=== PATIENT | male | born 1985 | race Caucasian/White ===

== ENCOUNTER 2018-02-20 16:09 | Emergency (ER) | payer OTHER ==
[2018-02-20 16:35] VITALS: BP 140/81
[2018-02-20] MEDS ORDERED: Naproxen TAB* 250 MG PO ONE (16:42)
--- NOTE | 2018-02-20 17:01 | UC ---
Upper Extremity HPI - HPI Summary HPI Summary: 33-year-old male who speaks only guyanese presents with right wrist pain. 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 Complains of pain to the distal radius. Describes pain as sharp. Nonradiating. Worsens with movement. Associated with some mild swelling and bruising. He has taken some over-the- counter ibuprofen with some relief. Last dose was at 9 AM this morning. Denies any weakness, numbness, or tingling. - History of Current Complaint Chief Complaint: UCUpperExtremity Stated Complaint: WRIST INJURY Time Seen by Provider: 02/20/18 16:23 Hx Obtained From: Patient, Supervisor Files Onset/Duration: Sudden Onset Severity Currently: Moderate Pain Intensity: 8 Location Of Pain: Is Discrete @ - distal radius Character: Sharp Aggravating Factor(s): Movement Alleviating Factor(s): OTC Meds Associated Signs And Symptoms: Positive: Swelling, Redness. Negative: Bruising , Fever, Weakness, Numbness/Tingling Related History: Occupational Injury - Allergies/Home Medications Allergies/Adverse Reactions: Allergies Allergy/AdvReac Type Severity Reaction Status Date / Time No Known Allergies Allergy Verified 02/20/18 16:34 PMH/Surg Hx/FS Hx/Imm Hx Previously Healthy: Yes - Denies significant PMH - Surgical History Surgical History: None - Family History Known Family History: Positive: Non-Contributory - Social History Occupation: Employed Full-time Lives: With Family Alcohol Use: None Substance Use Type: None Smoking Status (MU): Never Smoked Tobacco Review of Systems All Other Systems Reviewed And Are Negative: Yes Constitutional: Negative: Fever, Chills Skin: Positive: Other - Erythema Motor: Negative: Weakness Neurovascular: Negative: Decreased Sensation Musculoskeletal: Positive: Arthralgia - See HPI, Decreased ROM Is Patient Immunocompromised?: No Physical Exam Triage Information Reviewed: Yes Appearance: Well-Appearing, No Pain Distress, Well-Nourished Vital Signs: Initial Vital Signs Temp 98.5 F 02/20/18 16:21 Pulse 79 02/20/18 16:21 Resp 18 02/20/18 16:21 BP 140/81 02/20/18 16:21 Pulse Ox 100 02/20/18 16:21 Vital Signs Reviewed: Yes Respiratory: Positive: Lungs clear, Normal breath sounds, No respiratory distress Cardiovascular: Positive: RRR, No Murmur, Pulses Normal, Brisk Capillary Refill Musculoskeletal: Positive: Other: - Tenderness with ecchymosis to right radial wrist. 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 Neurological: Positive: Alert, Other: - Sensation intact distally Skin: Positive: Other - See above Procedures - Splinting Right Upper Extremity Location: right forearm Hand-Made Type: orthoglass Splint: sugar-tong Pre-Proc Neuro Vasc Exam: normal Post-Proc Neuro Vasc Exam: normal Diagnostics - Radiology No standard instances Radiology Interpretation Completed By: ED Physician - Nondisplaced radial styloid fracture that extends into the radiocarpal joint space, Radiologist Summary of Radiographic Findings: Patient Name: DAISY STARKEY Medical Record# : [id number]. Ordering Physician: Lexa Mcgregor NP Acct.#: [id number]. : 1985 Age: 33 Sex: M Location: [facility]. Exam Date: 02/20/181638 ADM Status: REG ER. Order Information: WRIST RIGHT 3+ VWS. Accession Number: [id number]. CPT: 35431. HISTORY: Pain s/p injury. COMPARISONS: None. VIEWS: 3 , Frontal, lateral, and oblique views of the right wrist. FINDINGS: BONE DENSITY: Normal. BONES: There is a nondisplaced fracture of the radial styloid with articular extension. JOINTS: There is no arthropathy. ALIGNMENT: There is no dislocation. SOFT TISSUES: Unremarkable. OTHER FINDINGS: None. IMPRESSION: NONDISPLACED FRACTURE OF THE DISTAL RADIUS Upper Extremity Course/Dx - Course Course Of Treatment: 33-year-old male who speaks only guyanese presents with right wrist pain. 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 Complains of pain to the distal radius. Describes pain as sharp. Nonradiating. Worsens with movement. Associated with some mild swelling and bruising. He has taken some [id number] ibuprofen with some relief. Exam reveals tenderness of the distal radius without gross deformity. Mild ecchymosis. X-ray revealed a nondisplaced fracture of the distal radius that extends into the radiocarpal joint. Ice was applied and he was given a dose of naproxen in the clinic for pain. He was placed in a sugartong forearm splint. Normal neurovascular pre and post application. Patient was given prescriptions for naproxen 1 tab BID and hydrocodone-acetaminophen 5/325 PRN severe pain. Recommend RICE and sling. Follow up with orthopedic surgery within 5 days for evaluation and treatment. Warning symptoms were reviewed with the patient. Patient verbalizes understanding and agrees with POC. The entire H&P, treatment , and discharge encounters were conducted using seismic interpreter services. - Differential Dx/Diagnosis Differential Diagnosis/HQI/PQRI: Contusion, Fracture (Closed), Hematoma, Sprain Provider Diagnoses: Nondisplaced radial styloid fracture that extends into the radiocarpal joint space Discharge - Sign-Out/Discharge Documenting (check all that apply): Patient Departure All imaging exams completed and their final reports reviewed: Yes - Discharge Plan Condition: Stable Disposition: HOME Prescriptions: Hydrocodone/Acetaminophen [Hydrocodone-Acetamin 5-325 mg] 1 each PO Q8HR PRN # 15 tablet MDD 3 PRN Reason: Severe Pain Naproxen [Naproxen 500 mg tab] 500 mg PO Q12HR #30 tablet Patient Education Materials: Wrist Fracture in Adults (ED), Splint Care (ED) Print Language: JAPANESE Referrals: No Primary Care Phys,NOPCP [Primary Care Provider] - Altaf Cohn MD [Medical Doctor] - [facility] [place] [facility]ERR[facility] [Outside] Additional Instructions: Your X-ray performed in the clinic today did show a fracture of your wrist. A splint was applied and will need to remain in place until you are evaluated by the orthopedic surgeon. It is very important that you do not get the splint wet. Rest the arm as much as possible. No lifting or strenuous activity with this arm. Use the arm sling that was provided to you whenever you are up and about. Apply ice to the affected area for 15-20 minutes 4 times a day for next few days. Keep the arm elevated to help reduce swelling. Take naproxen 1 tablet every 12 hours with food for next 7 days to help manage pain. After 7 days you may take every 12 hours as needed for pain. Use hydrocodone-acetaminophen 5 mg/325 mg 1 tablet every 8 hours as needed for severe pain. This medication will cause drowsiness therefore you should not take this medication and drive or operate machinery. Follow up with Dr. Cohn, orthopedic surgery, within 5 days for further evaluation and treatment. Call first thing Friday morning for an appointment. Your blood pressure was elevated in the clinic today. It is recommended that you have this rechecked by a primary care provider within 4 weeks to have this rechecked. I have provided you with the number for the [facility] Physician Referral number if you need assistance with establishing with a provider. Seek immediate medical attention in them emergency room if you have pain that is not managed with the pain medication, develop numbness or tingling in the hand or fingers, lose function of the hand, or have any worsening of symptoms. - Billing Disposition and Condition Condition: STABLE Disposition: Home
== END 2018-02-20 18:03 | disposition home or self-care (01) ==
LOC: UCEAST 16:09
DX: S52.514A Nondisplaced fracture of right radial styloid process, initial encounter for closed fracture (principal); S60.211A Contusion of right wrist, initial encounter; X50.1XXA Overexertion from prolonged static or awkward postures, initial encounter; Y92.79 Other farm location as the place of occurrence of the external cause; Y99.0 Civilian activity done for income or pay
CPT/HCPCS: 25600; 99202; A9270-GY; G0463